=== PATIENT | male | born 1940 | race Asian ===

== ENCOUNTER 2018-10-19 01:33 | Emergency (ER) | payer BC, MEDICARE ==
[~2018-10-19] VITALS: Ht 167.6 cm; Wt 56.0 kg
[2018-10-19 02:05] VITALS: BP 116/74
== END 2018-10-19 04:40 | disposition left against medical advice (07) ==
LOC: ER 01:33
DX: Z53.21 Procedure and treatment not carried out due to patient leaving prior to being seen by health care provider (principal)